=== PATIENT | female | born 1965 | race Caucasian/White ===

== ENCOUNTER 2023-10-23 10:21 | Outpatient (OUT) | payer OTHER, SELFPAY ==
--- NOTE | 2023-10-23 10:55 | MM_ITS ---
Patient Name: TISHA OLEA MR#: [id number] : 1965 Exam Date: 10/23/2023 Ordering Doctor: DR CANDY SUMMERS RADIOLOGY REPORT PROCEDURE: MM TOMOSYNTHESIS SCREENING BI COMPARISON: MG MAMM SCREEN 3D NORBERTO CAD, 10/22/2022. MG MAMM SCREEN 3D NORBERTO CAD, 10/01/2021. MG MAMM SCREEN NORBERTO W CAD, 06/27/2020. MG MAMM SCREEN NORBERTO W CAD, 03/06/2014. INDICATIONS: Screening Calculator Name NCI Breast Cancer Risk Assessment Tool 5 Year Breast Cancer Risk 2.40% Lifetime Breast Cancer Risk 11.90% Personal Breast Cancer No Personal Ovarian Cancer No Treatments None Family Cancers Aunt-paternal with lung cancer at age 52; Aunt-paternal with lung cancer at age ~60; Sister with bile duct cancer at age 59. LOCATION: [facility] BREAST COMPOSITION: Scattered areas fibroglandular density. FINDINGS: DIAGNOSTIC CATEGORY 2--BENIGN FINDING: RIGHT BREAST: No significant suspicious finding. Scattered benign-appearing calcifications are present. No significant change has occurred. LEFT BREAST: No significant suspicious finding. Scattered benign-appearing calcifications are present. No significant change has occurred. RECOMMENDATIONS: ROUTINE MAMMOGRAM AND CLINICAL EVALUATION IN 12 MONTHS. PLEASE NOTE: A NORMAL MAMMOGRAM DOES NOT EXCLUDE THE POSSIBILITY OF BREAST CANCER. A CLINICALLY SUSPICIOUS PALPABLE LUMP SHOULD BE BIOPSIED. Dictated by: Trip Yee M.D. on 10/23/2023 at 14:56 Approved by: Trip Yee M.D. on 10/23/2023 at 14:58
== END 2023-10-23 10:22 | disposition home or self-care (01) ==
LOC: MAMMO 10:21
PROVIDERS: PCP Nurse Practitioner Family; Visit Provider Nurse Practitioner Family
DX: Z12.31 Encounter for screening mammogram for malignant neoplasm of breast (principal); Z80.1 Family history of malignant neoplasm of trachea, bronchus and lung; Z80.0 Family history of malignant neoplasm of digestive organs
CPT/HCPCS: 77063; 77067

== ENCOUNTER 2024-10-25 14:41 | Outpatient (OUT) | payer OTHER, SELFPAY ==
--- NOTE | 2024-10-25 14:46 | MM_ITS ---
Patient Name: TISHA OLEA MR#: [id number] : 1965 Exam Date: 10/25/2024 Ordering Doctor: DR OC FRANZ RADIOLOGY REPORT PROCEDURE: MM TOMOSYNTHESIS SCREENING BI COMPARISON: MG MAMM SCREEN 3D NORBERTO CAD, 10/22/2022. MM TOMOSYNTHESIS SCREENING BI, 10/23/2023. INDICATIONS: Screening Calculator Name NCI Breast Cancer Risk Assessment Tool 5 Year Breast Cancer Risk 2.50% Lifetime Breast Cancer Risk 11.60% Personal Breast Cancer No Personal Ovarian Cancer No Treatments None Family Cancers Aunt-paternal with lung cancer at age 52; Aunt-paternal with lung cancer at age ~60; Sister with bile duct cancer at age 59. LOCATION: [facility] BREAST COMPOSITION: There are scattered areas of fibroglandular density. FINDINGS: DIAGNOSTIC CATEGORY 1--NEGATIVE. NO CHANGE FROM COMPARISON ASSESSMENT. Scattered benign-appearing calcifications are present. Scattered benign-appearing lymph nodes are present. RIGHT BREAST: No significant suspicious finding. LEFT BREAST: No significant suspicious finding. RECOMMENDATIONS: ROUTINE MAMMOGRAM AND CLINICAL EVALUATION IN 12 MONTHS. PLEASE NOTE: A NORMAL MAMMOGRAM DOES NOT EXCLUDE THE POSSIBILITY OF BREAST CANCER. A CLINICALLY SUSPICIOUS PALPABLE LUMP SHOULD BE BIOPSIED. Dictated by: Hari Farrell MD on 10/26/2024 at 08:40 Approved by: Hari Farrell MD on 10/26/2024 at 08:44
== END 2024-10-25 14:42 | disposition home or self-care (01) ==
LOC: MAMMO 14:41
PROVIDERS: PCP Family Medicine; Visit Provider Family Medicine
DX: Z12.31 Encounter for screening mammogram for malignant neoplasm of breast (principal); Z80.1 Family history of malignant neoplasm of trachea, bronchus and lung; Z80.8 Family history of malignant neoplasm of other organs or systems
CPT/HCPCS: 77063; 77067

== ENCOUNTER 2025-10-26 10:48 | Outpatient (OUT) | payer BC, SELFPAY ==
--- NOTE | 2025-10-26 10:50 | MM_ITS ---
Patient Name: TISHA OLEA MR#: [id number] : 1965 Exam Date: 10/26/2025 Ordering Doctor: DR OC FRANZ RADIOLOGY REPORT PROCEDURE: MM TOMOSYNTHESIS SCREENING BI COMPARISON: MM TOMOSYNTHESIS SCREENING BI, 10/25/2024. MM TOMOSYNTHESIS SCREENING BI, 10/23/2023. MG MAMM SCREEN 3D NORBERTO CAD, 10/22/2022. MG MAMM SCREEN NORBERTO W CAD, 03/06/2014. INDICATIONS: Screening Calculator Name NCI Breast Cancer Risk Assessment Tool 5 Year Breast Cancer Risk 2.60% Lifetime Breast Cancer Risk 11.30% Personal Breast Cancer No Personal Ovarian Cancer No Treatments None Family Cancers Aunt-paternal with lung cancer at age 52; Aunt-paternal with lung cancer at age ~60; Sister with bile duct cancer at age 59. LOCATION: [facility] BREAST COMPOSITION: There are scattered areas of fibroglandular density. FINDINGS: DIAGNOSTIC CATEGORY 1--NEGATIVE. RIGHT BREAST: No significant suspicious finding. LEFT BREAST: No significant suspicious finding. RECOMMENDATIONS: ROUTINE MAMMOGRAM AND CLINICAL EVALUATION IN 12 MONTHS. Dictated by: Miki Yee DO on 10/26/2025 at 15:15 Approved by: Miki Yee DO on 10/26/2025 at 15:16
--- OUTSIDE RECORDS SUMMARY | 2025-10-26 10:51 | XMS_ITS | Clinical Summary ---
Author Organization Wear tem Address [id number] [address] [place] [address] Care Team Providers Care Director Of Recruitment And Admissions Name Role Phone Chuck Tubbs Primary Care Provider [phone] Allergies No known active allergies Medications MedicationSigDispense QuantityRefillsLast FilledStart DateEnd DateStatus souxlukb-lmhuvkh-pdzs 149-hyal (GLUCOS CHOND CPLX ADVANCED ORAL) Active Lactobac no.41-Bifidobact no.7 70 mg (3 billion cell) capsule Active budesonide-formoteroL (SYMBICORT) 160-4.5 mcg/actuation inhaler Indications:BronchitisInhale 2 puffs in the morning and 2 puffs before bedtime. 10.2 g 3Active omeprazole (PriLOSEC) 20 mg capsule Take 1 capsule (20 mg total) by mouth daily as needed (heartburn).10/24/2024 Active valACYclovir (VALTREX) 1000 mg tablet Indications:Herpes simplex type 1 infectionTake 1 tablet (1,000 mg total) by mouth in the morning and 1 tablet (1,000 mg total) before bedtime. 6 tablet 5Active losartan-hydroCHLOROthiazide (HYZAAR) 100-25 mg per tablet Indications:Essential hypertensionTAKE 1 TABLET BY MOUTH EVERY DAY 90 tablet 5Active carvediloL (COREG) 12.5 mg tablet Indications:PalpitationsTake 1.5 tablets (18.75 mg total) by mouth in the morning and 1.5 tablets (18.75 mg total) in the evening. Take with meals. Do all this for 180 days. 270 tablet 506Active Active Problems ProblemNoted DateDiagnosed EdvrDtkhrswtvn27/02/2024Herniation of rectum into pdhjvw5610/11/2019Stress incontinence of urine08/17/2019 Overview (08/17/2019): ==== 08/17/2019 ==== patient with worsening urinary continence as well as now discovered rectocele. She had hysterectomy in the past. Examination I could not uncover cystocele or any semblance of prolapse. Certainly she has a rectocele. At times she has the place fingers in the vagina in order to complete a bowel movement. Plan: Given the rectocele referral to urogynecology for evaluation management of her condition. Stress incontinence of urine08/17/2019Patent foramen ovale07/05/2019PFO (patent foramen ovale)06/30/2019Abnormal tsmqaxptmtgqvw29/06/2019Diverticular disease 11/11/2016Female ssroohogf55/17/2016SVT (supraventricular tachycardia)Essential hypertension Encounters DateTypeDepartmentCare SwucMkvulchigtr17/02/2025Travelfrom Last 3 Months Immunizations ImmunizationAdministration DatesNext TfaNcej06/22/2022,08/03/2006Zoster Vaccine Jmjetjilsno25/12/2022,07/30/2022 Family History Medical HistoryRelationNameCommentsArrhythmiaBrother 1MikeHypertrophic cardiomyopathyBrother 1MikeDementiaFatherage 86Thyroid diseaseMotherage 87 in 24CancerSister 1Kathybile ductAnesthesia problemsNeg HxRelationNameStatus CommentsBrother 1MikeAliveBrother 2AliveFatherDeceasedMotherAliveSister 1Kathy DeceasedSister 2Alive Social History Tobacco UseTypesPacks/DayYears UsedDateSmoking Tobacco: FormerCigarettes0.511 Smokeless Tobacco: NeverAlcohol UseStandard Drinks/WeekCommentsYes0 (1 standard drink = 0.6 oz pure alcohol)occassionalAHC UtilitiesAnswerDate RecordedIn the past 12 months has the electric, gas, oil, or water company threatened to shut off services in your home?No10/24/2024Social Connection and Isolation Panel AnswerDate RecordedIn a typical week, how many times do you talk on the phone with family, friends, or neighbors?More than three times a week10/24/2024How often do you get together with friends or relatives?More than three times a week 10/24/2024How often do you attend latter day or quaker services?More than 4 times per year10/24/2024o you belong to any clubs or organizations such as latter day groups, unions, fraternal or athletic groups, or school groups?Yes10/24/2024How often do you attend meetings of the clubs or organizations you belong to?More than 4 times per year10/24/2024re you , , , , never , or living with a partner?Fgsimxo8410/24/2024UDIT-CAnswerDate RecordedQ1: How often do you have a drink containing alcohol?4 or more times a week10/24/2024Q2: How many drinks containing alcohol do you have on a typical day when you are drinking?1 or Q3: How often do you have six or more drinks on one occasion?Never10/24/2024Overall Financial Resource Strain (CARDIA) AnswerDate RecordedHow hard is it for you to pay for the very basics like food, housing, medical care, and heating?Not hard at all3PHQ-2AnswerDate RecordedTotal Vumfv404Finsteward health care system [place] of Occupational Health - Occupational Stress QuestionnaireAnswerDate RecordedDo you feel stress - tense, restless, nervous, or anxious, or unable to sleep at night because yourmind is troubled all the time - these days?Not at all10/24/2024Exercise Vital SignAnswer Date RecordedOn average, how many days per week do you engage in moderate to strenuous exercise (like a brisk walk)?0 days10/24/2024On average, how many minutes do you engage in exercise at this level?0 min10/24/2024RAPARE - TransportationAnswerDate RecordedIn the past 12 months, has lack of transportation kept you from medical appointments or from getting medications?No 10/16/2023In the past 12 months, has lack of transportation kept you from meetings, work, or from getting things needed for daily living?No10/16/2023 Housing InstabilityAnswerDate RecordedAre you worried or concerned that in the next two months you may not have stable housing that you own, rent or stay in as a part of a household?No10/16/2023hildcareAnswerDate RecordedDo problems getting child nutrition director make it difficult for you to work or study?No10/24/2024 EmploymentAnswerDate RecordedDo you need help finding a local career center and/or a training program?No10/24/2024Hunger ScreeningAnswerDate RecordedWithin the past 12 months we worried whether our food would run out before we got money to buy more.Never True05/01/2025Within the past 12 months the food we bought just didn't last and we didn't have money to get more.Never True05/01/2025 Purpose - LifeAnswerDate RecordedI have a purpose and direction in my life. Strongly Agree10/24/2024CommentsNoSex and Gender InformationValueDate RecordedSex Assigned at BirthNot on fileLegal YjkJgpwhr35/06/2015 11:27 AM EDT Gender IdentityNot on fileSexual OrientationNot on file Last Filed Vital Signs Vital SignReadingTime TakenCommentsBlood Vbmvzqck454/68005/01/2025 1:53 PM EDT Xtiiy622905/01/2025 1:53 PM ZAHGizmghyfckw76.8 ??C (98.2 ??F)05/01/2025 1:53 PM EDTRespiratory Hlsz277305/01/2025 1:53 PM EDTOxygen Zbbqberwyy43%05/01/2025 1:53 PM EDTInhaled Oxygen Concentration--Rxndqz21.1 kg (183 lb 3.2 oz)05/01/2025 1:53 PM JZKIfxvrl716.3 cm (5' 3.5 )05/01/2025 1:53 PM EDTBody Mass Index31.94 05/01/2025 1:53 PM EDT Plan of Treatment DateTypeDepartmentCare Team (Latest Contact Info)Miolyubdlwi63/04/2025 1:00 PM ESTOffice Visit [facility] [address] [place] [address] Chuck Tubbs DO [address], [place] [address] Health MaintenanceDue DateLast DoneCommentsAdult BMI Follow Up Plan1981 Tpcsziifizy35/08/2008RSV ( or age 60+ yrs) (1 - Risk 60-74 years 1-dose series)3COVID-19 Vaccine (2 - season)/ Influenza Hlntovz6307/24/20254948Gydqtasvi73/03/202512/01/2024, 10/23/2023, 10/22/2022 Adult BMI Ooclvxrnf95/07/2025Depression Cvmzbglst12/07/2025 Tobacco Wqeymjpnf07/07/2025DTaP,Tdap and Td Vaccines (3 - Td or Tdap) , 08/03/2006Zoster (Shingles) DfzhwdsGscsdyopu46/12/2022, 2Pap SmearDiscontinued Medical Devices ImplantedTypeAreaManufacturerDevice IdentifierShelf Expiration DateModel / Serial / LotGft Hmn Tiss 2x3cm Epicord - [id number] - [id number] Implanted:Qty: 6 on 10/28/2019 [facility] KatjQNPGGL30/01/2024EC-5230 / [id number] / [id number] Soft Sayner Implanted:Qty: 1 on 10/28/[facility] [id number]/[id number] / / [id number] Soft Sayner Implanted:Qty: 1 on 10/28/2019 [facility]: [id number] / / [id number] Soft Sayner Implanted:Qty: 1 on 10/28/2019 by [facility]: [id number] / / [id number] Procedures Procedure NamePriorityDate/TimeAssociated DiagnosisCommentsMAMM SCREENING BILATERAL W FINEqartoi93/03/2024 10:39 AM EST Encounter for screening mammogram for malignant neoplasm of breast from Last 3 Months or Most Recently Relevant to Health Maintenance Results * Mammography screening bilateral with CAD (10/25/2024 10:39 AM EST)Anatomical RegionLateralityModalityBreastBilateralMammography Narrative Authorizing ProviderResult TypeResult StatusDennis G Furlong DOIMG MAMMOGRAPHY ORDERABLESFinal Result from Last 3 Months or Most Recently Relevant to Health Maintenance Insurance Advance Directives TypeDate RecordedPatient RepresentativeExplanationLiving Will10/28/2019 12:28 PM 10/28/19 Care Teams Team MemberRelationshipSpecialtyStart DateEnd Date Chuck Tubbs DO [address] [facility] [place] [address] [facility]02/07/19
--- OUTSIDE RECORDS SUMMARY | 2025-10-26 10:51 | XMS_ITS | Clinical Summary ---
Author Organization [facility] Healthcare Address [address] [place] [address] Care Team Providers Care Pediatric Oncology Nurse Name Role Phone Unavailable Primary Care Provider Unavailabl e Social History Tobacco UseTypesPacks/DayYears UsedDateSmoking Tobacco: Never Assessed CommentsUnknownSex and Gender InformationValueDate RecordedSex Assigned at Not on fileLegal AyqQmplrj07/15/2023 6:48 PM EDTGender IdentityNot on fileSexual OrientationNot on file Last Filed Vital Signs Vital SignReadingTime TakenCommentsBlood Iqekaqrx251/8601/21/2023 12:00 PM EST Pulse--Temperature--Respiratory Rate--Oxygen Saturation--Inhaled Oxygen Concentration--Hhgmdn59.8 kg (187 lb)01/21/2023 12:00 PM EDPCrzukd184 cm (5' 3 ) 01/21/2023 12:00 PM ESTBody Mass Index33.1303 12:00 PM EST Plan of Treatment Not on file
--- OUTSIDE RECORDS SUMMARY | 2025-10-26 10:51 | XMS_ITS | Encounter Summary ---
Author Organization Unified tem Address [facility] [place] [id number] [address] [place] [address] Care Team Providers Care Purchasing Officer Name Role Phone Chuck Tubbs Primary Care Provider + [phone] Encounter Details DateTypeDepartmentCare Team (Latest Contact Info)Ziclqvucqqx89/02/2025Travel Social History Tobacco UseTypesPacks/DayYears UsedDateSmoking Tobacco: FormerCigarettes0.511 Smokeless Tobacco: NeverAlcohol UseStandard Drinks/WeekCommentsYes0 (1 standard drink = 0.6 oz pure alcohol)occassionalAHC UtilitiesAnswerDate RecordedIn the past 12 months has the [employer], gas, oil, or water [employer] threatened to shut off services in your home?No10/24/2024Social Connection and Isolation Panel AnswerDate RecordedIn a typical week, how many times do you talk on the phone with family, friends, or neighbors?More than three times a week10/24/2024How often do you get together with friends or relatives?More than three times a week 10/24/2024How often do you attend lutheran or christianity services?More than 4 times per year10/24/2024o you belong to any clubs or organizations such as lutheran groups, unions, fraternal or athletic groups, or school groups?Yes10/24/2024How often do you attend meetings of the clubs or organizations you belong to?More than 4 times per year10/24/2024re you , , , , never , or living with a partner?Vtnqvii1510/24/2024UDIT-CAnswerDate RecordedQ1: How often do you have a [...] housing, medical care, and heating?Not hard at all10/16/2023HQ-2AnswerDate RecordedTotal Dqkjg926Finblue mountain hospital [place] of Occupational Health - Occupational Stress QuestionnaireAnswerDate [...] of a household?No10/16/2023hildcareAnswerDate RecordedDo problems getting child care sitter make it difficult for you to work [...] InformationValueDate RecordedSex Assigned at BirthNot on fileLegal BecJcmhkd97/06/2015 11:27 AM EDT Gender IdentityNot on fileSexual OrientationNot on filedocumented as of this encounter Plan of Treatment DateTypeDepartmentCare Team (Latest Contact Info)Ajvgbovdxzm24/04/2025 1:00 PM ESTOffice Visit [facility] [address] [place] [address] Chuck Tubbs DO [address], [place] [address] documented as of this encounter Visit Diagnoses Not on filedocumented in this encounter Additional Health Concerns AssessmentNoted TimePHQ-9 Depression Total Score: 1:53 PM EDTA Body Mass Index follow-up plan has been documented for the ikujmjl6010/19/2023 5:45 PM ESTdocumented as of this encounter Care Teams Team MemberRelationshipSpecialtyStart DateEnd Date Chuck Tubbs DO [address] WHITEElisabethB[facility] [place] [address] PCP - GeneralFamily Medicine02/07/19documented as of this encounter
--- OUTSIDE RECORDS SUMMARY | 2025-10-26 10:54 | XMS_ITS | Patient Health Record ---
Author Organization [facility] vices Address [address] [place], [place] [address] Care Team Providers Care Orthophoto Tech/Draftsman Name Role Phone Tracy Richard Unavailable [phone] Bonny Guillen Unavailable [phone] Allergies Allergen (clinical drug ingredient) Drug/Non Drug Allergy documented on EMR Reaction Allergy Type Onset Date Status Latex Latex Unknown Allergy Active Reason For Referral No Information Medications Medication SIG (Take, Route, Frequency, Duration) Notes Start Date End Date Status Losartan Potassium-HCTZ 100-25 MG Tablet TAKE 1 TABLET BY MOUTH EVERY DAY Oral; Duration: 90 Days ActiveCarvedilol 12.5 MG TabletOral; Duration: 90 DaysActiveLosartan Potassium- HCTZ 100-25 MG TabletOral; Duration: 90 DaysNot-Taking/PRN Social History Tobacco Use: Social History Observation Description Date Details (start date - stop date) Never Smoker NA - NA Sex Assigned At : Social History Observation Description Sex Assigned At Female Social History Social DeterminantsSocial InfoQuestionAnswerNotesPRAPAREDate Completed/Updated: 08/08/2024patient entered dataWhat is your current housing situation?I have housingpatient entered dataAre you worried about losing your housing?No patient entered dataWhat is the highest level of school that you have finished?High school diploma or GEDpatient entered dataWhat is your current work situation?Otherwise unemployed but not seeking work (ex. student, retired, disabled, unpaid primary progressive care nurse)patient entered dataHas lack of transportation kept you from medical appointments, meetings, work or from getting things needed for daily living?Nopatient entered dataHow often do you see or talk to people that you care about and feel close to? (For example: talkingto friends on the phone, visiting friends or family, going to temple or club meetings)More than 5 times a weekpatient entered dataIn the past year have you spent more than 2 nights in a row in a assisted, shelter, long term center, orjuvenile correctional facility?Nopatient entered dataIn the past year, have you been afraid of your partner or ex-partner?Nopatient entered dataAre you a refugee?Nopatient entered dataWhat country are you from?[place] patient entered dataTobacco Use:Social InfoQuestionAnswerNotesTobacco Control (Standard)Tobacco use:Nonsmoker Problems Problem Type SNOMED Code ICD Code Onset Dates Problem Status W/U Status Risk Notes Problem Body mass index 30.0 0 to 34.99 ([id number]) BMI 31.0-31.9,adult (Z68.31) Activeconfirmed Vital Signs Heart Rate 73 /min 06/06/2025 Blood pressure bsfhteaad62 mm Hg06/06/2025Height-cm160.02 cm06/06/2025Weight-kg 81.65 kg06/06/20258610Zurffi84 in06/06/2025lood pressure wqofvfde233 mm Hg 06/06/20259631Vsiikc363 lbs06/06/2025BMI31.88 kg/m206/06/2025 Encounters Encounter Location Date Provider Diagnosis [facility] [address] [place] [phone] 06/06/2025 Bonny Guillen BMI 31.0-31.9,adul t Z68.31 ; Encounter for dental examination and cleaning without abnormal findings Z01.20 ; Dietary counseling Z71.3 and Exercise counseling Z71.82 Assessments Encounter Date Diagnosis (ICD Code) Assessment Notes Treatment Notes Treatment Clinical Notes Section Notes 06/06/2025 BMI 31.0-31.9,adult (ICD-10 - Z6 8.31) 06/06/2025Encounter for dental examination and cleaning without abnormal findings (ICD-10 - Z01.20)06/06/2025Dietary counseling (ICD-10 - Z71.3) 06/06/2025Exercise counseling (ICD-10 - Z71.82) Plan Of Treatment No Information Insurance Providers Payer Name Payer Address Payer Phone Subscriber Number Group Number Insured Name Patient Relationship to Insured Coverage Start Date Coverage End Date [facility] [address] [place], [place] [id number] Emma Tapia Self - patient is the insured 5 Medical (General) History Medical History History ICD Code High blood pressure Asthma
--- OUTSIDE RECORDS SUMMARY | 2025-10-26 10:55 | XMS_ITS | CCD ---
Author Organization [facility] Care Team Providers Care Accounts Receivable Clerk Name Role Phone MARIA M, DR CHUCK Valverde Primary Care Unavailable MELINA, DR CANDY Jasso Attending Unavailable MELINA, DR CANDY Jasso Admitting Unavailable [place], DR ABHIJIT Ley Consulting Unavailable MELINA, DR CANDY Jasso Consulting Unavailable CHUCK TUBBS Referring Unavailable CHUCK TUBBS Primary Care Unavailable Chuck Tubbs DO Primary Care Provider Chuck Tubbs DO Primary Care Provider CHUCK TUBBS Attending Unavailable CHUCK TUBBS Referring Unavailable CHUCK TUBBS Primary Care Unavailable CHUCK TUBBS Attending Unavailable CHUCK TUBBS Referring Unavailable CHUCK TUBBS Primary Care Unavailable Medications Current Medications MedicationDrug Class(es)DatesSig (Normalized)Sig (Original)acyclovir 0.05 mg/mg topical ointment (1 source)Herpesvirus Nucleoside Analog DNA Polymerase Inhibitor, Herpes Simplex Virus Nucleoside Analog DNA Polymerase Inhibitor, Herpes Zoster Virus Nucleoside Analog DNA Polymerase InhibitorStart: 54-22-0397gvahtbpld (ZOVIRAX) 5 % ointment Indications: Herpes simplex type 1 infection Apply 1 Application topically 4 (four) times a day. 15 g 03/21/2024 Activeamoxicillin 500 mg oral capsule (2 sources)Penicillin-class AntibacterialStart: 05-01-2025 End: 47-08-9006rqem 1 capsule by mouth three times dailyamoxicillin (AMOXIL) 500 mg capsule Take 1 capsule (500 mg total) by mouth 3 (three) times a day for 7 days. 21 capsule 05/01/2025 05/08/2025 Activeaspirin 81 mg delayed release oral tablet (1 source)Platelet Aggregation Inhibitor, Nonsteroidal Anti-inflammatory Drug take 1 tablet by mouth in the morningaspirin 81 mg Take 1 tablet (81 mg total) by mouth in the morning. 30 tablet 11 Activebaclofen 10 mg oral tablet (1 source)gamma-Aminobutyric Acid-ergic AgonistStart: 54-69-8755rbob 1 tablet by mouth at bedtimebaclofen (LIORESAL) 10 mg tablet Indications: Chronic bilateral low back pain without sciatica TAKE1 TABLET BY MOUTH IN THE MORNING AND BEFORE BEDTIME 60 tablet 2 10/19/2022 Activebenzonatate 200 mg oral capsule (1 source)Non-narcotic AntitussiveStart: 16-57-0374vrae 1 capsule by mouth three times daily as needed for coughbenzonatate (TESSALON PERLES) 200 mg capsule Indications: Exacerbation of allergic asthma due to infection Take 1 capsule (200 mg total) by mouth 3 (three) times a day as needed for cough. 30 capsule1 04/21/2024 ActiveBudesonide / formoterol (6 sources)Corticosteroid, beta2-Adrenergic AgonistStart: 09-30-6432uswp 2 puff(s) by inhalation in the morningbudesonide-formoteroL (SYMBICORT) 160-4.5 mcg/actuation inhaler Indications: Bronchitis Inhale 2 puffs in the morning and 2 puffs before bedtime. 10.2 g 1 02/17/2023 Activecarvedilol 12.5 mg oral tablet (5 sources)alpha-Adrenergic Edmund, beta-Adrenergic BlockerStart: 06-12-2025 End: 10-68-7751gwwh 1.5 tablets by mouth in the morning, then take 1.5 tablets by mouth at mealtimecarvediloL (COREG) 12.5 mg tablet Indications: Palpitations Take 1.5 tablets (18.75 mg total) by mouth in the morning and 1.5 tablets (18.75 mg total) in the evening. Take with meals. Do all this tcg892 days. 270 tablet 1 06/12/2025 12/09/2025 ActiveStart: 09-09-2024 End: 21-19-0058ernr 1.5 tablets by mouth in the morning, then take 1.5 tablets by mouth at mealtimecarvediloL (COREG) 12.5 mg tablet Indications: Palpitations Take 1.5 tablets (18.75 mg total) by mouth in the morning and 1.5 tablets (18.75 mg total) in the evening. Take with meals. Do all this woz717 days. 270 tablet 1 11/07/2024 05/06/2025 ActiveStart: 86-05-7924kqse 1 tablet by mouth twice daily carvediloL (COREG) 12.5 mg tablet Indications: Palpitations TAKE 1 & 1/2 (ONE AND ONE-HALF) TABLETS BY MOUTH TWICE DAILY 540 tablet 1 09/23/2023 Active hnvkyllh-mcxlmkv-ijlk 149-hyal (GLUCOS CHOND CPLX ADVANCED ORAL) (6 sources)pchlmrfh-yebxfkt-hjqh 149-hyal (GLUCOS CHOND CPLX ADVANCED ORAL) Ddqdvnlpjknvdl-vltklvv-oznb 149-hyal (GLUCOS CHOND CPLX ADVANCED ORAL) Glucos Chond Cplx Advanced ActivehydroCHLOROthiazide 25 mg / losartan potassium 100 mg oral tablet (8 sources)Thiazide Diuretic, Angiotensin 2 Receptor BlockerStart: 11-07-2024 End: 27-57-1316qsmv 1 tablet by mouth once dailylosartan-hydroCHLOROthiazide (HYZAAR) 100-25 mg per tablet Indications: Essential hypertension TAKE1 TABLET BY MOUTH EVERY DAY 90 tablet 1 06/09/2025 ActiveStart: 10-05-2023 End: 05-95-9141rtmf 1 tablet by mouth once dailylosartan-hydroCHLOROthiazide (HYZAAR) 100-25 mg per tablet Indications: Essential hypertension TAKE1 TABLET BY MOUTH EVERY DAY 90 tablet 1 07/08/2024 ActiveLactobac no.41-Bifidobact no.7 70 mg (3 billion cell) capsule (6 sources)Lactobac no.41-Bifidobact no.7 70 mg (3 billion cell) capsule Active Lactobac no.41-Bifidobact no.7 70 mg (3 billion cell) capsule Probiotic Ubhnaz80 hr loratadine 5 mg / pseudoephedrine sulfate 120 mg extended release oral tablet (1 source)alpha-Adrenergic AgonistStart: 51-23-0329hran 1 tablet by mouth once loratadine-pseudoephedrine (LORATADINE-D) 5-120 mg tablet extended release 12 hr Indications: Acutepharyngitis, unspecified etiology Take 1 tablet by mouth every 12 (twelve) hours. 14 tablet 1 03/14/2024 Activelysine 1000 mg oral tablet (1 source)lysine 1,000 mg tablet Activeomeprazole 20 mg delayed release oral capsule (6 sources)Proton Pump InhibitorStart: 97-25-5780zduq 1 capsule by mouth once daily as needed for gastroesophageal reflux diseaseomeprazole (PriLOSEC) 20 mg capsule Take 1 capsule (20 mg total) by mouth daily as needed (heartburn). 10/24/2024 ActiveStart: 89-80-7366nedi 1 capsule by mouth in the morning omeprazole (PriLOSEC) 20 mg capsule Take 1 capsule (20 mg total) by mouth in the morning. 30 capsule 1 02/17/2023 ActivepredniSONE 20 mg oral tablet (3 sources)Start: 05-01-2025 End: 80-70-1548uhdx 1 tablet by mouth in the morning, then take 1 tablet by mouth at bedtimepredniSONE (DELTASONE) 20 mg tablet Take 1 tablet (20 mg total) by mouth in the morning and 1 tablet (20 mg total) before bedtime. Do all this for 5 days. 10 tablet 05/01/2025 05/06/2025 ActiveStart: 66-96-1655jftontJOOW (DELTASONE) 20 mg tablet Indications: Exacerbation of allergic asthma due to infection Take two tablets daily for 5 days, then one tablet daily for 5 days 15 tablet 04/21/2024 ActivevalACYclovir 1000 mg oral tablet (7 sources)Herpesvirus Nucleoside Analog DNA Polymerase Inhibitor, Herpes Simplex Virus Nucleoside Analog DNA Polymerase Inhibitor, Herpes Zoster Virus Nucleoside Analog DNA Polymerase InhibitorStart: 03-14-2024 End: 31-29-9787fptj 1 tablet by mouth in the morning, then take 1 tablet by mouth at bedtimevalACYclovir (VALTREX) 1000 mg tablet Indications: Herpes simplex type 1 infection Take 1 tablet (1,000 mg total) by mouth in the morning and 1 tablet (1,000 mg total) before bedtime. 6 tablet 1 05/02/2025 Active Problems Active Problems Problem ClassificationProblemDateDocumented DateEpisodic/ChronicAsthma (2 sources)Asthmatic bronchitis; Translations: [Unspecified asthma, uncomplicated]Onset: 599271-92-0052VnehrklFtwfbya and circulatory congenital anomalies (13 sources)Patent foramen ovale; Translations: [PFO (patent foramen ovale)] Onset: 043707-49-2391VkiyywcLwsypea dysrhythmias (6 sources)Supraventricular tachycardia; Translations: [SVT (supraventricular tachycardia)]39-97-6087NpsaeegFpyqeyc dysrhythmias (2 sources)Palpitations; Translations: [Palpitations]Onset: 804821-21-7755 EpisodicDiverticulosis and diverticulitis (6 sources)Diverticular disease; Translations: [Diverticulosis of intestine, part unspecified, without perforation or abscess without bleeding]Onset: 185117-18-3416GfgycwgNnatiraqt hypertension (9 sources)Essential hypertension; Translations: [Essential (primary) hypertension]Onset: 281302-03-5739DykdowoFpunotfiwcxpq symptoms and ill- defined conditions (12 sources)Genuine stress incontinence; Translations: [Stress incontinence (female) (male)]Onset: 987866-89-1304TihflvnOxfrx lower respiratory disease (1 source)CoughOnset: 14-03-5826UqqtrzucYlvuy nutritional; endocrine; and metabolic disorders (1 source)Other obesity due to excess calories; Translations: [Other obesity due to excess calories]Onset: 79-61-0103QxpmjrpNnigf nutritional; endocrine; and metabolic disorders (1 source)Body mass index (BMI) 32.0-32.9, adult; Translations: [Body mass index (BMI) 32.0-32.9, adult]Onset: 03-71-9905InbilfhPsfks upper respiratory infections (2 sources)Upper respiratory infection; Translations: [Acute upper respiratory infection, unspecified]Onset: 454720-91-2739RqwghdcrVigzmzoh of female genital organs (12 sources)Herniation of rectum into vagina; Translations: [Rectocele]Onset: 659579-97-0057FozrqtnJkllntew codes; unclassified (1 source)Family history of malignant neoplasm of trachea, bronchus and lung; Translations: [FAM HX MALIG NEOPLSM TRACH BRON LNG]Onset: 09-49-5662Ewvdnpuv Residual codes; unclassified (1 source)Family history of malignant neoplasm of digestive organs; Translations: [FAM HX MALIG NEOPLASM DIGESTIV ORGN]Onset: 24-02-8431Pkzegcxq Unclassified (1 source)Obesity, class 1; Translations: [Obesity, class 1]Onset: 10-24-2024 Unclassified (1 source)Annual ExamOnset: 35-75-3316Ozwkg infection (1 source)Herpes simplex type 1 infection; Translations: [Herpesviral infection, unspecified]02-55-3782Rqtxkepg Past or Other Problems Problem ClassificationProblemDateDocumented DateEpisodic/ChronicChronic obstructive pulmonary disease and bronchiectasis (6 sources)Bronchitis; Translations: [Bronchitis, not specified as acute or chronic]Onset: 771181-79-7350IkxaspksSfit disorders (6 sources)Mood disordersOnset: 03-14-2024 Resolved: Other screening for suspected conditions (not mental disorders or infectious disease) (12 sources)Encounter for screening mammogram for malignant neoplasm of breast; Translations: [Echocardiogram abnormal]Onset: 18-58-4818AjdcrvdfOcqrqemxexel (6 sources)Onset: Results Test NameValueInterpretationReference RangeFacilityPOCT Influenza A/Influenza B/SARS-COV-2 Veritoron 83-47-7961Emomzlgg Poct Influenza A AntigenNegative [facility] SystemExternal Poct Influenza B AntigenNegativeChillicothe HospitalRSVNegativeECU Health Chowan HospitalARS-CoV-2 (COVID-19) Ag IA.rapid Ql (Resp)NegativeProGalion HospitalProGalion HospitalCOMPREHENSIVE METABOLIC PANELon 29-10-1819Jqlaybq [Mass/Vol]3.9 g/dLNormal3.2-5.3ProMedChildren's Hospital for RehabilitationComment on above:Performed By: #### JESSICA, 37270-6 #### [facility] ([id number]) [address], [address] [place], [place] [address]EDO [Catalytic activity/Vol]58 U/SCecegu44-485BnqSgfbxv [place] HospitalComment on above:Performed By: #### JESSICA, 43399-1 #### [facility] ([id number]) [address], [address] [place], [place] [address]OQG [Catalytic activity/Vol]7 U/LNormal0-31ProMedica [facility] HospitalComment on above:Performed By: #### JESSICA, 27643-3 #### [facility] ([id number]) [address], [address] [place], [place] [address]Oxfyu gap [Moles/Vol]11 mmol/LNormal5-15ProMedica Muñoz HospitalComment on above:Performed By: #### JESSICA, 47806-0 #### [facility] ([id number]) [address], [address] [place], [place] [address]OGY [Catalytic activity/Vol]17 U/LNormal0-41ProMedica Muñoz HospitalComment on above:Performed By: #### JESSICA, 63758-0 #### [facility] ([id number]) [address], [address] [place], [place] [address]Ofhqermca [Mass/Vol]0.9 mg/dLNormal0.3-1.2ProMedica Muñoz HospitalComment on above:Performed By: #### JESSICA, 17556-9 #### [facility] ([id number]) [address], [address] [place], [place] [address]Rwjzqbo [Mass/Vol]9.0 mg/dLNormal8.5-10.5ProMedica Muñoz HospitalComment on above:Performed By: #### JESSICA, 34550-4 #### [facility] ([id number]) [address], [address] [place], [place] [address]Bilnxqun [Moles/Vol]103 mmol/HAisifp34-190IhmLidmtv [facility] HospitalComment on above:Performed By: #### JESSICA, 83220-6 #### [facility] ([id number]) [address], [address] [place], [place] [address]BW7 [Moles/Vol]28 mmol/JBwmfbc85-86CzwPvovcg [facility] Comment on above:Performed By: #### JESSICA, 81946-2 #### [facility] ([id number]) [address], [address] [place], [place] [address]Fgoxywthoz [Mass/Vol]0.73 mg/dLNormal0.40-1.00[facility] Samaritan Medical CenterComment on above:Result Comment: METHOD TRACEABLE TO IDMS STANDARD Performed By: #### JESSICA, 85438-1 #### [facility] ([id number]) [address], [address] [place], [place] [address]wNOK (CKD-EPI) NON-RACE DEPENDENT>90Normal>59ProParkview Health Bryan HospitalComment on above:Result Comment: Reported eGFR is based on the CKD-EPI 2020 equation that does not use a race coefficient.Performed By: #### JESSICA, 16301-3 #### [facility] ([id number]) [address], [address] [place], [place] [address]Agbppnf [Mass/Vol]90 mg/rGKtwmcc25-50KxiOpinpbUniversity Hospitals Samaritan Medical Center Comment on above:Performed By: #### JESSICA, 85680-7 #### [facility] ([id number]) [address], [address] [place], [place] [address]Vuzksgypp [Moles/Vol]4.0 mmol/LNormal3.5-5.0[facility] Medical CenterComment on above:Performed By: #### JESSICA, 66403-0 #### [facility] ([id number]) [address], [address] [place], [place] [address]Pfawnei [Mass/Vol]6.4 g/dLNormal6.0-8.0[facility] Comment on above:Performed By: #### JESSICA, 26250-4 #### [facility] ([id number]) [address], [address] [place], [place] [address]Jpdgly [Moles/Vol]142 mmol/VJqegtc789-698BmcYdrenr [facility] HospitalComment on above:Performed By: #### JESSICA, 15649-1 #### [facility] ([id number]) [address], [address] [place], [place] [address]Qgdu nitrogen [Mass/Vol]15 mg/dLNormal5-27ProMercy Health HospitalComment on above:Performed By: #### JESSICA, 87227-6 #### [facility] ([id number]) [address], [address] [place], [place] [address]Tkgzm 1996 panelon 87-28-8508Kkdxylokwne [Mass/Vol]164 mg/dL Ekdbik009-122HrbWmbxlu [place] HospitalComment on above:Performed By: #### JESSICA, 68319-0 #### [facility] ([id number]) [address], [address] [place], [place] [address]Hbyztbcltfn in HDL [Mass/Vol]64 mg/dLNormal>39ProMercy Health HospitalComment on above:Result Comment: HDL <40 mg/dL - High Risk HDL > or = 40mg/dL- Desirable HDL >60 mg/dL - Negative Risk Performed By: #### JESSICA, 28467-2 #### [facility] ([id number]) [address], [address] [place], [place] [address]Fkalmxyktxk in LDL [Mass/Vol]79 mg/dLNormal<130ProMercy Health HospitalComment on above:Result Comment: LDL <100 mg/dL - Desirable LDL >160 mg/dL - High Risk Performed By: #### JESSICA, 84623-9 #### [facility] ([id number]) [address], [address] [place], [place] [address]Glkvlljlgav in VLDL [Mass/Vol]21 mg/dLNormal0-30ProMercy Health HospitalComment on above:Performed By: #### CMP, 08213-8 #### [facility] ([id number]) [address], [address] [place], [place] [address]NLEFDWUDXNB:HDL2.3Fbvede5.0-5.0ProMercy Health HospitalComment on above:Performed By: #### CMP, 59336-4 #### [facility] ([id number]) [address], [address] [place], [place] [address]Ifrvesgcbuxg [Mass/Vol]106 mg/pEGogmdi83-923PrmMbdqmy [place] HospitalComment on above:Performed By: #### CMP, 71616-8 #### [facility] ([id number]) [address], [address] [place], [place] [address]KP MAMM SCREEN 3D NORBERTO CADon 46-49-5682JQ MAMM SCREEN 3D NORBERTO CAD Patient: EMMA TAPIA Exam Date: 10/22/2022 : 1965 Gender:F Ordering : DR CANDY SUMMERS Admission #: [id number] Family : Order #: [id number] CLICK HERE TO VIEW EXAM RADIOLOGY REPORT PROCEDURE: MAMMOGRAM SCREENING 3D BILATERAL CAD COMPARISON: MG MAMM SCREEN 3D NORBERTO CAD, 10/01/2021. INDICATIONS: Screening mammography Calculator Name NCI Breast Cancer Risk Assessment Tool 5 Year Breast Cancer Risk 2.30% Lifetime Breast Cancer Risk 12.20% Personal Breast Cancer No Personal Ovarian Cancer No Treatments None Family Cancers Aunt-paternal with lung cancer at age 52; Aunt-paternal with lung cancer at age 60; Sister with bile duct cancer at age 59. LOCATION: [facility] BREAST COMPOSITION: Scattered areas fibroglandular density. FINDINGS: DIAGNOSTIC CATEGORY 1--NEGATIVE. NO CHANGE FROM COMPARISON ASSESSMENT. Scattered benign-appearing calcifications are present. Scattered benign-appearing lymph nodes are present. RIGHT BREAST: No significant suspicious finding. LEFT BREAST: No significant suspicious finding. RECOMMENDATIONS: ROUTINE MAMMOGRAM AND CLINICAL EVALUATION IN 12 MONTHS. PLEASE NOTE: A NORMAL MAMMOGRAM DOES NOT EXCLUDE THE POSSIBILITY OF BREAST CANCER. A CLINICALLY SUSPICIOUS PALPABLE LUMP SHOULD BE BIOPSIED. Dictated by: Abhijit Farrell MD on 10/23/2022 at 07:52 Approved by: Abhijit Farrell MD on 10/23/2022 at 07:54[facility] COMPREHENSIVE METABOLIC PANELon 98-87-6843Gjtfbtb [Mass/Vol]4.2 g/dLNormal 3.6-5.1Quest DiagnosticsComment on above:Performed By: #### 10434, 39158, 90959 #### [facility] [place] [address] Real Estate Attorney: Les Aguilera MDAlbumin/Globulin [Mass ratio]1.7 {ratio}Normal 1.0-2.5Quest DiagnosticsComment on above:Performed By: #### 11831, 44833, 69730 #### [facility] [place] [address] Real Estate Attorney: Les Aguilera MDALP [Catalytic activity/Vol]54 U/DJxxevu81-528 [facility] DiagnosticsComment on above:Performed By: #### 89535, 30816, 10334 #### [facility] [place] [address] Real Estate Attorney: Les Aguilera MDALT [Catalytic activity/Vol]9 U/LNormal6-29 [facility] DiagnosticsComment on above:Performed By: #### 62807, 82658, 58647 #### [facility] [place] [address] Real Estate Attorney: Les Aguilera MDAST [Catalytic activity/Vol]17 U/JYgtois31-72 [facility] DiagnosticsComment on above:Performed By: #### 60610, 30378, 98517 #### [facility] [place] [address] Real Estate Attorney: Les Aguilera MDBilirubin [Mass/Vol]1.0 mg/dLNormal0.2-1.2 [facility] DiagnosticsComment on above:Performed By: #### 28904, 86169, 52163 #### [facility] of [address], [address] [place] [address] Real Estate Attorney: Les CHAVARRIAN/CREATININE RATIONOT APPLICABLENormal6-22 [facility] DiagnosticsComment on above:Performed By: #### 52795, 64982, 88271 #### [facility] of [address], [address] [place] [address] Real Estate Attorney: Les Aguilera MDCalcium [Mass/Vol]9.3 mg/dLNormal8.6-10.4Quest DiagnosticsComment on above:Performed By: #### 38550, 10211, 84207 #### [facility] of [address], [address] [place] [address] Real Estate Attorney: Les Aguilera MDChloride [Moles/Vol]104 mmol/QJrazxm77-390 [facility] DiagnosticsComment on above:Performed By: #### 14674, 21339, 26265 #### [facility] of [place] [address] Real Estate Attorney: Les Aguilera MDCO2 [Moles/Vol]30 mmol/JWhtgel08-28Hyuib DiagnosticsComment on above:Performed By: #### 25697, 70489, 97093 #### [facility] of [place] [address] Real Estate Attorney: Les VALDESreatinine [Mass/Vol]0.79 mg/dLNormal0.50-1.05 [facility] DiagnosticsComment on above:Result Comment: For patients >49 years of age, the reference limit for Creatinine is approximately 13% higher for people identified as -Honduran.Performed By: #### 86478, 69187, 96823 #### [facility] of [address], [address] [place] [address] Real Estate Attorney: Les Aguilera MDeGFR NON-AFR. IGXRXCKA79 mL/min/1.81z4Nlbsqf> OR = 60Quest DiagnosticsComment on above:Performed By: #### 91891, 01488, 64383 #### [facility] [place] [address] Real Estate Attorney: Les Aguilera MDGFR/1.73 sq M.predicted among blacks MDRD (S/P/Bld) [Vol rate/Area]95 mL/min/{1.73_m2}Normal> OR = 60[facility] Comment on above:Performed By: #### 60208, 24375, 90297 #### [facility] [place] [address] Real Estate Attorney: Les Aguilera MDGlobulin (S) [Mass/Vol]2.5 g/dLNormal1.9-3.7 [facility] DiagnosticsComment on above:Performed By: #### 99984, 48762, 97928 #### [facility] [place] [address] Real Estate Attorney: Les Aguilera MDGlucose [Mass/Vol]87 mg/cIKphpwc60-26Lkvpa DiagnosticsComment on above:Result Comment: Fasting reference intervalPerformed By: #### 87875, 12407, 28023 #### [facility] [place] [address] Real Estate Attorney: Les Aguilera MDPotassium [Moles/Vol]3.9 mmol/LNormal3.5-5.3 [facility] DiagnosticsComment on above:Performed By: #### 88376, 83168, 73898 #### [facility] [place] [address] Real Estate Attorney: Les Aguilera MDProtein [Mass/Vol]6.7 g/dLNormal6.1-8.1Quest DiagnosticsComment on above:Performed By: #### 88910, 36851, 41995 #### [facility] of [address] [place] [address] Real Estate Attorney: Les LEIGHodium [Moles/Vol]141 mmol/LRrrvtn466-539Ugzcg DiagnosticsComment on above:Performed By: #### 04729, 63299, 45734 #### [facility] [address], [address] [place] [address] Real Estate Attorney: Les Aguilera MDUrea nitrogen [Mass/Vol]11 mg/dLNormal7-25 [facility] DiagnosticsComment on above:Performed By: #### 04424, 20415, 22792 #### [facility] [address], [address] [place] [address] Real Estate Attorney: Les LUCAS+FREE T4on 73-52-5405Iqpr T4 [Mass/Vol]1.3 ng/dLNormal0.8-1.8Quest DiagnosticsComment on above:Order Comment: FASTING:YES FASTING: YESPerformed By: #### 21718, 55635, 94300 #### [facility] [address], [address] [place] [address] Real Estate Attorney: Les LUCAS Qn1.04 m[IU]/LNormal0.40-4.50Quest DiagnosticsComment on above:Order Comment: FASTING:YES FASTING: YESPerformed By: #### 51035, 64218, 12479 #### [facility] [address], [address] [place] [address] Real Estate Attorney: Les Aguilera MDVITAMIN D,25-OH,TOTAL,IAon 21-44-7851UZSLLYE D,25-OH,TOTAL,IA36 ng/yTVboxjm46-285Bvqui DiagnosticsComment on above:Result Comment: Vitamin D Status 25-OH Vitamin D: Deficiency: <20 ng/mL Insufficiency: 20 - 29 ng/mL Optimal: > or = 30 ng/mL For 25-OH Vitamin D testing on patients on D2-supplementation and patients for whom quantitation of D2 and D3 fractions is required, the QuestAssureD(TM) 25-OH VIT D, (D2,D3), LC/MS/MS is recommended: order code 46365 (patients >2yrs). See Note 1 Note 1 For additional information, please refer to http://education.HQ plus/faq/ZLI397 (This link is being provided for informational/ educational purposes only.)Performed By: #### 21769, 66785, 19419 #### [facility] of [address], [address] [place] [address] Real Estate Attorney: Les Aguilera LDS HOSPITALENSIVE METABOLIC PANELon 10-11-2021 Albumin [Mass/Vol]4.3 g/dLNormal3.6-5.1Quest DiagnosticsComment on above: Performed By: #### 7600, 93576 #### [facility] [address], [address] [place] [address] Real Estate Attorney: Les Aguilera MDAlbumin/Globulin [Mass ratio]1.8 {ratio}Normal 1.0-2.5Quest DiagnosticsComment on above:Performed By: #### 7600, 76275 #### [facility] of [address], [address] [place] [address] Real Estate Attorney: Les Aguilera MDALP [Catalytic activity/Vol]59 U/BKogkwv95-660 [facility] DiagnosticsComment on above:Performed By: #### 7600, 70886 #### [facility] of [address], [address] [place] [address] Real Estate Attorney: Les Aguilera MDALT [Catalytic activity/Vol]9 U/LNormal6-29 [facility] DiagnosticsComment on above:Performed By: #### 7600, 32954 #### [facility] of [address], [address] [place] [address] Real Estate Attorney: Les Aguilera MDAST [Catalytic activity/Vol]16 U/QCsamkl99-22 [facility] DiagnosticsComment on above:Performed By: #### 7600, 75413 #### [facility] [address], [address] [place] [address] Real Estate Attorney: Les Merati MDBilirubin [Mass/Vol]1.0 mg/dLNormal0.2-1.2 [facility] DiagnosticsComment on above:Performed By: #### 7600, 74093 #### [facility] of [address], [address] [place] [address] Real Estate Attorney: Les Aguilera MDBUN/CREATININE RATIONOT APPLICABLENormal6-22 [facility] DiagnosticsComment on above:Performed By: #### 7600, 52915 #### [facility] of [address], [address] [place] [address] Real Estate Attorney: Les Aguilera MDCalcium [Mass/Vol]9.4 mg/dLNormal8.6-10.4Quest DiagnosticsComment on above:Performed By: #### 7600, 08581 #### [facility] [address], [address] [place] [address] Real Estate Attorney: Les Aguilera MDChloride [Moles/Vol]103 mmol/BNnypry76-702 [facility] DiagnosticsComment on above:Performed By: #### 7600, 55394 #### [facility] of [address], [address] [place] [address] Real Estate Attorney: Les Aguilera MDCO2 [Moles/Vol]30 mmol/ZKjtkyb13-80Amunp DiagnosticsComment on above:Performed By: #### 7600, 51219 #### [facility] of [place] [address] Real Estate Attorney: Les VALDESreatinine [Mass/Vol]0.81 mg/dLNormal0.50-1.05 [facility] DiagnosticsComment on above:Result Comment: For patients >49 years of age, the reference limit for Creatinine is approximately 13% higher for people identified as -Honduran.Performed By: #### 7600, 21520 #### [facility] of [place] [address] Real Estate Attorney: Les Aguilera MDeGFR NON-AFR. WDRALERH78 mL/min/1.08w5Wnggwp> OR = 60Quest DiagnosticsComment on above:Performed By: #### 7600, 48460 #### [facility] of [place] [address] Real Estate Attorney: Les Aguilera MDGFR/1.73 sq M.predicted among blacks MDRD (S/P/Bld) [Vol rate/Area]93 mL/min/{1.73_m2}Normal> OR = 60[facility] Comment on above:Performed By: #### 7600, 37905 #### [facility] of [address], [address] [place] [address] Real Estate Attorney: Les Aguilera MDGlobulin (S) [Mass/Vol]2.4 g/dLNormal1.9-3.7 [facility] DiagnosticsComment on above:Performed By: #### 7600, 63149 #### [facility] of [place] [address] Real Estate Attorney: Les Aguilera MDGlucose [Mass/Vol]83 mg/lGCmxqxl91-17Sdqdn DiagnosticsComment on above:Result Comment: Fasting reference intervalPerformed By: #### 7600, 25100 #### [facility] [place] [address] Real Estate Attorney: Les Aguilera MDPotassium [Moles/Vol]3.8 mmol/LNormal3.5-5.3 [facility] DiagnosticsComment on above:Performed By: #### 7600, 45486 #### [facility] of [place] [address] Real Estate Attorney: Les Aguielra MDProtein [Mass/Vol]6.7 g/dLNormal6.1-8.1Quest DiagnosticsComment on above:Performed By: #### 7600, 67860 #### [facility] of [address], [address] [place] [address] Real Estate Attorney: Les Aguilera MDSodium [Moles/Vol]141 mmol/TFhwksj313-168Cacxb DiagnosticsComment on above:Performed By: #### 7600, 63330 #### [facility] [address], [address] [place] [address] Real Estate Attorney: Les Aguilera MDUrea nitrogen [Mass/Vol]13 mg/dLNormal7-25 [facility] DiagnosticsComment on above:Performed By: #### 7600, 41171 #### [facility] [address], [address] [place] [address] Real Estate Attorney: Les Aguilera MDLIPID PANEL, STANDARDon 70-06-5735Szobeapwkrr [Mass/Vol]189 mg/dLNormal<200Quest DiagnosticsComment on above:Performed By: #### 7600, 37693 #### [facility] [address], [address] [place] [address] Real Estate Attorney: Les Aguilera MDCholesterol in HDL [Mass/Vol]74 mg/dLNormal> OR = 50Quest DiagnosticsComment on above:Performed By: #### 7600, 54091 #### [facility] [place] [address] Real Estate Attorney: Les VALDESholesterol in LDL [Mass/Vol]95 mg/dLNormal Quest DiagnosticsComment on above:Result Comment: Reference range: <100 Desirable range <100 mg/dL for primary prevention; <70 mg/dL for patients with CHD or diabetic patients with > or = 2 CHD risk factors. LDL-C is now calculated using the Thaddeus calculation, which is a validated novel method providing better accuracy than the Friedewald equation in the estimation of LDL-C. Kurt SS et al. ROLANDA. 2013;310(19): 3415-9668 (http://education.Lezu365.Kaptur/faq/GIU504)Performed By: #### 7600, 44506 #### [facility] [address], [address] [place] [address] Real Estate Attorney: Les Aguilera MDCholesterol.total/Cholesterol in HDL [Mass ratio]2.6 {ratio}Normal<5.0Quest DiagnosticsComment on above:Performed By: #### 7600, 64003 #### [facility] [address], [address] [place] [address] Real Estate Attorney: Les Aguilera MDNON HDL LUATZBRFFVX530 mg/dL (calc)Normal<130 Quest DiagnosticsComment on above:Result Comment: For patients with diabetes plus 1 major ASCVD risk factor, treating to a non-HDL-C goal of <100 mg/dL (LDL-C of <70 mg/dL) is considered a therapeutic option.Performed By: #### 7600, 13073 #### [facility] [address], [address] [place] [address] Real Estate Attorney: Les Aguilera MDTriglyceride [Mass/Vol]107 mg/dLNormal<150 Quest DiagnosticsComment on above:Performed By: #### 7600, 15579 #### [facility] [address], [address] [place] [address] Real Estate Attorney: Les Aguilera MD Vital Signs Date TimeVital SignValuePerforming CttpipjfkGoehmeze90-74-5028 13:53-0400Body obazrf096.3 cmDavidCardiovascular Provider Resource Holdings DO Work Phone: [facility]06-09-2025 13:53-0400Body mass index (BMI) [Ratio]31.94 kg/c3AbrjqsCardiovascular Provider Resource Holdings DO Work Phone: [facility]06-09-2025 13:53-0400Body ijyawudqqyc29.2 [degF]Chuck [employer]West [employer] DO Work Phone: [facility]06-09-2025 13:53-0400Body ppnjfy53.1 kgDenCardiovascular Provider Resource Holdings DO Work Phone: [facility]06-09-2025 13:53-0400Diastolic blood wdttdage51 mm[Hg]Chuck MaxWest [employer] DO Work Phone: [facility]06-09-2025 13:53-0400Heart rate 88 /Adela Tubbs DO Work Phone: [facility]06-09-2025 13:53-0400 Respiratory rate20 /Adela Tubbs DO Work Phone: [facility]06-09-2025 13:53-7373SuI1% (BldA) [Mass fraction]94 %Chuck Tubbs DO Work Phone: [facility]06-09-2025 13:53-0400Systolic blood kruopthj111 mm[Hg]Chuck Tubbs DO Work Phone: [facility] Encounters Encounter DateEncounter TypeCare ProviderFacilityStart: 06-12-2025 End: 07-97-5127OseacgCmtm Cooper [facility] Medicine - Family MedicineComment on above:PalpitationsStart: 06-09-2025 End: 57-57-8458VbqkadDdnl Cooper [facility] Internal Medicine - Family MedicineComment on above:Essential hypertensionStart: 05-01-2025 End: 97-10-1833TgttvpJroa Jonathan Gallegos DO Work Phone: [facility] Phys[facility] Internal Medicine - Family MedicineComment on above:Herpes simplex type 1 infectionStart: 05-01-2025 End: 46-58-0460Iehiys outpatient visit 15 minutesDencarol Tubbs DO Work Phone: [facility] Physicians Internal Medicine - Family MedicineComment on above:Asthmatic bronchitis without complication, unspecified asthma severity, unspecified whether persistent (Primary Dx); Upper respiratory tract infection, unspecified typeStart: 10-25-2024 End: 44-93-4602Tufzrmhef encounterBestephen Ji [facility] Internal Medicine - Family MedicineStart: 10-24-2024 End: 29-72-4786fdgvekuletGDKJBM G [facility] Centertart: 11-62-3654Mxpjbsscn for general adult medical examination without abnormal findingsDENNIS [facility] HospitalStart: 10-24-2024 End: 89-72-2756mwqsrfcvpwURAQXK G [facility] PPGStart: 05-62-6653Nbwsdkmze for general adult medical examination without abnormal findingsCHUCK Valverde [facility] PPGStart: 07-08-2024 End: 64-42-9884EagazlDyojw Cherelle CMAProMedica Physicians Internal Medicine - Family MedicineComment on above:Essential hypertensionStart: 10-22-2022 End: 28-57-8351ztpaqczkvoWM CHUCK DELCIDWAVERLY HEALTH CENTERFacility:H1 Procedures DateProcedureProcedure DetailPerforming ClinicianStart: 51-78-9795UUCV INFLUENZA A/INFLUENZA B/SARS-COV-2 VERITORChuck Valverde [place] DO Work Phone: Start: 54-42-0067Cesso depression screening assessment [facility] DO Work Phone: Start: 65-98-7107VenqtjxqcdlTabsql Furlong DO Work Phone: Start: 85-43-7363Jxysq depression screening assessment Lorie Forrider CMAStart: 02-62-4593Heksk depression screening assessmentMisty Cherelle CMAStart: 97-38-4480NmyqfuxkrlqPwzaw Cherelle [employer] Plan of Treatment DateCare ActivityDetailAuthorStart: 94-81-5234OQyH,Tdap and Td Vaccines (3 - Td or Tdap)DTaP,Tdap and Td Vaccines (3 - Td or Tdap)[facility] SystemStart: 10-69-0899Iortp BMI ScreeningAdult BMI ScreeningUpper Valley Medical Centerca [facility] SystemStart: 13-90-6620Xdjidrljsg ScreeningDepression ScreeningProAccess Hospital Daytonca [facility] SystemStart: 24-09-0832Zkljmgj ScreeningTobacco ScreeningOhioHealth [facility] SystemStart: 28-40-8218Okbdudblp for malignant neoplasm of breastMammogramOhioHealth Dublin Methodist Hospital SystemStart: 73-30-8553Pdbyu BMI ScreeningAdult BMI ScreeningProAccess Hospital Daytonca [facility] SystemStart: 07-18-9778Cxdhyscfut ScreeningDepression ScreeningECU Health Chowan Hospitaltart: 44-44-0562Jucoxst ScreeningTobacco ScreeningChillicothe Hospital Start: 26-06-1630Nbuuhzdte vaccinationInfluenza VaccineChillicothe Hospital Start: 89-53-7978Ftxjlbq ScreeningTobacco ScreeningECU Health Chowan Hospitaltart: 13-82-1486Juvyw BMI ScreeningAdult BMI ScreeningECU Health Chowan Hospitaltart: 61-67-9888Feosmvukjk ScreeningDepression ScreeningECU Health Chowan Hospitaltart: 64-81-6560Afavosbsj for malignant neoplasm of colonColonoscopyChillicothe HospitalComment on above:Postponed from 2008 (Not Indicated)Start: 91-78-7747Slwlcrxxd for malignant neoplasm of breastMammogramECU Health Chowan Hospitaltart: 00-37-4812Ytmsv BMI Follow Up PlanAdult BMI Follow Up PlanECU Health Chowan Hospitaltart: 95-63-6159VHPDN-19 Vaccine ( season)COVID-19 Vaccine ( season)[facility] Hospitaltart: 66-98-6035Udskcotoj vaccinationInfluenza VaccineECU Health Chowan Hospitaltart: 36-46-8841LUMNA-19 Vaccine ( season)COVID-19 Vaccine ( season)[facility] Hospitaltart: 50-58-6685Pfjlfnazt for malignant neoplasm of colon ColonoscopyCh[facility]ic[facility] Immunizations Immunization DateImmunizationNotesCare GtbgvllkUjgmfqyx86-41-4109zwrvmr vaccine recombinantMisty Cherelle [facility]11-22-2022tetanus toxoid, reduced diphtheria toxoid, and acellular pertussis vaccine, adsorbedMisty Cherelle [facility]09-07-2022zoster vaccine recombinantMisty Cherelle [facility]09-11-2006tetanus toxoid, reduced diphtheria toxoid, and acellular pertussis vaccine, adsorbedMisty Cherelle [facility] Payers DatePayer CategoryPayerPolicy [id number] [facility] - HMOANTHEM Member Subscriber Plan / Payer (Effective 2024-Present) Name: Emma Tapia MemberID: [id number] Relation to Subscriber: Self Name: Emma Tapia Payer ID: [id number] (NAIC) Type: Not on file Address: [address] [place] [id number] [id number] Care HMO (unspecified)[facility] [id number] [employer] [place] [id number] 2022- [phone] [place] [id number] [id number] .[id number] [id number] .[id number]bcv [id number]ndr Health [id number] Social History DateTypeDetailFacilityStart: 18-92-6426Ssambdb smoking status NHISEx-smoker [facility] SystemHistory of tobacco useCurrent smokerChillicothe HospitalHistory of tobacco useCigarette SmokerOhioHealth Dublin Methodist Hospital SystemStart: 02-17-2023 End: 10-17-8676Rgcfzrizgg smoked current (pack per day) - Reported0.5PCleveland Clinic [facility] SystemStart: 46-78-2771Drxrmqo use and exposureSmokeless tobacco non-user [facility] Hospitaltart: 04-21-2024 End: 06-91-5443Eldhqwitb beverage intakeCurrent drinker of alcohol (finding) [facility] SystemStart: 04-21-2024 End: 85-32-1410Gaurwrq use panelOhioHealth Dublin Methodist Hospital SystemHow hard is it for you to pay for the very basics like food, housing, medical care, and heatingNot hard at allECU Health Chowan Hospitaltart: 50-10-0545Matmpyo Commentoccassional [facility] Hospitaltart: 95-33-2256Fud assigned at birthNot on file [facility] HospitalHas the HealthEdge, gas, oil, or water Warrantly threatened to shut off services in your home in past 12MoNoProAshtabula County Medical Center SystemDo you belong to any clubs or organizations such as rastafari groups, unions, fraternal or athletic groups, or school groups?YesProAndalusia Health Health SystemAre you now , , , , never or living with a partner? MarriedProAndalusia Health Health SystemHow often to you have a drink containing alcohol?4 or more times a weekProAndalusia Health Health SystemHow many standard drinks containing alcohol do you have on a typical day?1 or 2PSt. Bernard Parish Hospital Health SystemHow often do you have 6 or more drinks on 1 occasion?NeverProAndalusia Health Health SystemDo you feel stress - tense, restless, nervous, or anxious, or unable to sleep at night because yourmind is troubled all the time - these days [OSQ]Not at allRockingham Memorial HospitalSpotzer SystemStart: 84-10-5777RkdCyjwvl (finding)[facility] Medical Equipment Procedure CodeEquipment CodeEquipment Original TextEquipment IdentifierDatesGft Hmn Tiss 2x3cm Epicord - [id number] - [id number]: 57-06-3463Zfmxsklriw Soft [id number]_cscNhroo: 75-75-7419Zwykmlstnk Soft [id number]_zdyAcnbt: 58-24-1340Rfnkvtsuon Soft [id number]_ifwLmpdf: 10-28-2019 Clinical Notes 10-25-2024 to 05-01-2025 Note Date & RpyrElqoVwfkenol68-57-4098 History of Present illness Narrative* Chuck Tubbs, DO - 05/01/2025 1:45 PM EDT Subjective Patient ID: Emma Tapia is a 60 y.o. female. Emma presents today for fever and respiratory symptoms that have been off and on since March. She did an at home Influenza and Covid test today that was negative. Last she had a fever, productive barking cough, and wheezing. The cough produced green mucus. The fever resolved Thursday and thencame back last night. What her temperature was and if it is greater than 100.4 she said she only had it greater than 100.4 twice. She has an inhaler at home that she takes for her symptoms. She does not use it otherwise unless she is sick. She has body aches with the fever and has felt nauseated with the cough. She has not tried the Flonase yet with this episode. She said sometimes Claritin D helps but she has not yet taken it with this episode. She said she has been taking Nyquil helps her sleep. Yesterday she took Mucinex and dextromethorphan which also helped her symptoms. Her symptoms areworse in the mornings and improve as the day goes on. Last year she was seen at the end of March for persistent cough > 1 month and was given Augmentin and Prednisone that cleared up her symptoms. She says the cough is different this year. She is concerned about a swollen lymph node in the posterior right neck. Also gets cold sores when she has an outbreak. She usually gets cold sores when shegets sick as well. They spent the winter in [place] and was fine all winter while she was down. When she came back to [place] as when the symptoms started. She had a similar pattern last year. Cough This is a recurrent problem. The current episode started 1 to 4 weeks ago. Associated symptoms include chills, ear pain, a fever, headaches and wheezing. Pertinent negatives include no sore throat orshortness of breath. Her past medical history is significant for environmental allergies. The following portions of the patient's history were reviewed and updated as appropriate: allergies, current medications, past family history, past medical history, past social history, past surgicalhistory, problem list, and medication reconciliation was completed including current medication andpost discharge medication. Review of Systems Constitutional: Positive for chills, fatigue and fever. HENT: Positive for congestion, ear pain, sinus pressure, sinus pain and sneezing. Negative for sorethroat. Eyes: Negative. Respiratory: Positive for cough, choking (last night while eating watermelon) and wheezing. Negative for chest tightness and shortness of breath. Cardiovascular: Negative. Gastrointestinal: Positive for nausea. Endocrine: Negative. Genitourinary: Negative. Musculoskeletal: Negative. Allergic/Immunologic: Positive for environmental allergies. Neurological: Positive for headaches. Hematological: Negative. Psychiatric/Behavioral: Negative. Objective Physical Exam Vitals reviewed. Exam conducted with a level vial setter present ( and Florencio Bo MS 3). Constitutional: General: She is not in acute distress. Appearance: She is obese. She is not ill-appearing. HENT: Right Ear: Tympanic membrane, ear canal and external ear normal. Left Ear: Tympanic membrane, ear canal and external ear normal. Nose: No congestion or rhinorrhea. Right Nostril: No occlusion. Left Nostril: No occlusion. Right Turbinates: Enlarged and swollen. Left Turbinates: Enlarged and swollen. Mouth/Throat: Lips: Knappa. Mouth: Mucous membranes are moist. Pharynx: Oropharynx is clear. Uvula midline. No pharyngeal swelling, oropharyngeal exudate, posterior oropharyngeal erythema or uvula swelling. Eyes: General: No scleral icterus. Extraocular Movements: Extraocular movements intact. Conjunctiva/sclera: Conjunctivae normal. Neck: Vascular: No carotid bruit. Cardiovascular: Rate and Rhythm: Normal rate and regular rhythm. Heart sounds: Normal heart sounds. No murmur heard. Pulmonary: Effort: Pulmonary effort is normal. No respiratory distress. Breath sounds: Normal breath sounds. No wheezing, rhonchi or rales. Lymphadenopathy: Cervical: No cervical adenopathy (Cervical lymphadenopathy was palpable but not pathologically enlarged). Neurological: General: No focal deficit present. Mental Status: She is alert and oriented to person, place, and time. Psychiatric: Mood and Affect: Mood normal. Behavior: Behavior normal. Thought Content: Thought content normal. Judgment: Judgment normal. Assessment/Plan Emma was seen today for cough. Diagnoses and all orders for this visit: Upper respiratory tract infection, unspecified type - POCT Influenza A/Influenza B/SARS-COV-2 Veritor Viral respiratory swab was negative. Asthmatic bronchitis without complication, unspecified asthma severity, unspecified whether persistent Will treat as a recurrent bronchitis with amoxicillin 500 mg t.I.d. for 7 days and a prednisone 20 mg twice a day burst due to chronicity and recurrent fever. We will need further workup and testing if no better, worse or new symptoms. Other orders - predniSONE (DELTASONE) 20 mg tablet; Take 1 tablet (20 mg total) by mouth in the morning and 1 tablet (20 mg total) before bedtime. Do all this for 5 days. - amoxicillin (AMOXIL) 500 mg capsule; Take 1 capsule (500 mg total) by mouth 3 (three) times a dayfor 7 days. documented in this encounterUpper Valley Medical CenteratHomestars Select Specialty HospitalLxknob52-60-0617 Miscellaneous Notes* Telephone Encounter - Lorie Ji CMA - 10/25/2024 11:08 AM EST ----- Message from Dr. Chuck Tubbs DO sent at 10/25/2024 9:11 AM EST ----- Her labs looked great. Her cholesterol was at goal. Her CMP was normal. Her cardiovascular risk of heart attack and stroke in the next 10 years is low at 3.1%. She does not need to take an aspirin * Telephone Encounter - Lou Adari - 10/25/2024 11:08 AM EST Patient notified and understands documented [facility] Telephone encounter Note* Telephone Encounter - Lorie Ji CMA - 10/25/2024 11:08 AM EST ----- Message from Dr. Chuck Tubbs DO sent at 10/25/2024 9:11 AM EST ----- Her labs looked great. Her cholesterol was at goal. Her CMP was normal. Her cardiovascular risk of heart attack and stroke in the next 10 years is low at 3.1%. She does not need to take an aspirin [facility]12-03-2024 Telephone encounter Note* Telephone Encounter - Lou Adair - 10/25/2024 11:08 AM EST Patient notified and understands [facility] SystemEvaluation [facility]* Diagnosis Essential hypertension Unspecified essential hypertension documented in this encounter [facility] SystemEvaluation [facility]* Diagnosis Asthmatic bronchitis without complication, unspecified asthma severity, unspecified whether persistent- Primary Upper respiratory tract infection, unspecified type documented in this encounter [facility] SystemEvaluation [facility]* Diagnosis Herpes simplex type 1 infection Herpes simplex without mention of complication documented in this encounter [facility] SystemEvaluation [facility]* Diagnosis Essential hypertension Unspecified essential hypertension documented in this encounter [facility] SystemEvaluation [facility]* Diagnosis Palpitations documented in this encounter [facility] SystemInstructionsNot on filedocumented in this encounter [facility] SystemInstructionsNot on filedocumented in this encounter [facility] SystemInstructionsNot on filedocumented in this encounter [facility] SystemInstructionsNot on filedocumented in this encounter [facility] SystemInstructionsNot on filedocumented in this encounter [facility] Summary Purpose Family History No Family History Records FoundNo Family History Records FoundNo Family History Records FoundNo Family History Records Found Advance Directives TypeDate RecordedPatient RepresentativeExplanationLiving Will10/28/2019 12:28 PM 10/28/19 Additional Source Comments INFORMATION SOURCE (unrecogn ized section and content) DATE CREATED AUTHOR 04/24/2022 [facility] DATE CREATED AUTHOR AUTHOR'S ORGANIZ ATION 10/25/2022 [facility] DATE CREATED AUTHOR AUTHOR'S ORGANIZ ATION 10/26/2024 [facility] DATE CREATED AUTHOR AUTHOR'S ORGANIZ ATION 05/02/2025 [facility] Reason for Visit (unrecogniz ed section and content) ReasonOnset DateCommentsMed Qgqvdc5407/08/2024easonCommentsCoughCongestion,fever 4 daysReasonOnset DateCommentsMed Ryuiaj2505/01/2025ReasonOnset DateCommentsMed Wrnzdr2606/09/2025ReasonOnset DateCommentsMed Uceyxw2706/12/2025 Care Teams (unrecognized sec tion and content) Team MemberRelationshipSpecialtyStart DateEnd Date Chuck Tubbs DO [address], [place] [address] PCP - GeneralFamily Medicine02/07/19Team MemberRelationshipSpecialtyStart DateEnd Date Chuck Tubbs DO [address], [place] [address] PCP - GeneralFamily Medicine02/07/19Team MemberRelationshipSpecialtyStart DateEnd Date Chuck Tubbs DO [address], [place] [address] PCP - GeneralFamily Medicine02/07/19Team MemberRelationshipSpecialtyStart DateEnd Date Chuck Tubbs [address], [place] [address] PCP - GeneralFamily Medicine02/07/19Team MemberRelationshipSpecialtyStart DateEnd Date Chuck Tubbs, DO [address], [address] [place] [id number] [facility] FOR RECORDS PERTAINING TO PATIENTS WHO ARE OR HAVE BEEN ENROLLED IN A CHEMICAL DEPENDENCY/SUBSTANCEABUSE PROGRAM, SOME INFORMATION MAY BE OMITTED. This clinical summary was aggregated from multiple sources. Caution should be exercised in using it in the provision of clinical care. This summary normalizes information from multiple sources, and as a consequence, information in this document may materially change the coding, format and clinical context of patient data. In addition, data may be omitted in some cases. CLINICAL DECISIONS SHOULD BE BASED ON THE PRIMARY CLINICAL RECORDS. [facility]. provides no warranty or guarantee of the accuracy or completeness of information in this document.
== END 2025-10-26 10:49 | disposition home or self-care (01) ==
LOC: MAMMO 10:48
PROVIDERS: PCP Family Medicine; Visit Provider Family Medicine
DX: Z12.31 Encounter for screening mammogram for malignant neoplasm of breast (principal); Z80.1 Family history of malignant neoplasm of trachea, bronchus and lung; Z80.0 Family history of malignant neoplasm of digestive organs
CPT/HCPCS: 77063; 77067